=== PATIENT | male | born 1990 | race Caucasian/White ===

== ENCOUNTER 2018-07-08 14:11 | Inpatient (IN) | payer SELFPAY ==
[~2018-07-08] VITALS: Ht 182.9 cm; Wt 83.9 kg
[2018-07-08 14:11] VITALS: BP 124/72
--- NOTE | 2018-07-08 14:15 | NUR ---
Dolores cuevas in EDM - 07/08/18 at 1627 by LIDIA cms intact to all four extremities. < 3 sec cap refill. Pulse +2.
--- NOTE | 2018-07-08 14:16 | NUR ---
PT BIBA ALS TO BED 7
--- NOTE | 2018-07-08 14:16 | NUR ---
58m biba amr als with c/o tonic clonic seizure lasting approx 1 minute. Oral trauma noted. Urine incontinence noted. Patient given 7.5 Versed Intranasal. On arrival pt is post ictal. Combative. Aggressive. GCS=14. RR are even and tachypneic. No emesis noted. ER md germain by bedside. Pt to cardiac, bp, pulse ox, and pulse monitoring. Will continue to monitor.
[2018-07-08] MEDS ORDERED: NACL 0.9% 1,000 ML IV ONE (14:20)
[2018-07-08 14:54] LABS: BASOPHILS % (AUTO) 0.3 % (0.0-2.0); EOSINOPHILS # (AUTO) 0.1 K/uL (0-0.4); EOSINOPHILS % (AUTO) 1.6 % (0.0-4.0); HEMOGLOBIN 14.9 g/dL (12.0-18.0); LYMPHOCYTES # (AUTO) 2.5 K/uL (2.0-11.5); LYMPHOCYTES % (AUTO) 29.8 % (20.5-51.1); MEAN CORPUSCULAR HEMOGLOBIN 30 pg (27-31); MEAN CORPUSCULAR HGB CONC 33 g/dL (33-37); MEAN CORPUSCULAR VOLUME 90.7 fL (80-94); MONOCYTES # (AUTO) 0.8 K/uL (0.8-1.0); MONOCYTES % (AUTO) 9.1 % (1.7-9.3); NEUTROPHILS # (AUTO) 4.9 K/uL (1.8-7.7); NEUTROPHILS % (AUTO) 59.2 % (42.2-75.2); PLATELET COUNT (AUTO) 213 K/uL (140-450); RED BLOOD CELL COUNT(AUTO) 4.97 MIL/uL (4.20-6.10); RED CELL DISTRIBUTION WIDTH 13.9 % (11.6-13.7); WHITE BLOOD COUNT (AUTO) 8.3 K/uL (4.8-10.8)
[2018-07-08] MEDS ORDERED: LORazepam 2 MG/ML VIAL IVP ONE (14:55)
[2018-07-08] MEDS ORDERED: diphenhydrAMINE 50 MG/ML VIAL IVP ONE (14:55)
[2018-07-08 15:04] LABS: ANION GAP 13.5 (8-16); CARBON DIOXIDE 24.9 mmol/L (21-32); CHLORIDE 102 mmol/L (98-107); CREATININE 1.1 mg/dL (0.7-1.3); GFR ARICAN-AMERICAN 101 mL/min (>90); GLUCOSE 96 mg/dL (74-106); POTASSIUM 3.4 mmol/L (3.5-5.1); SODIUM SERUM 137 mmol/L (136-145); UREA NITROGEN, BLOOD 10 mg/dL (7-18)
--- NOTE | 2018-07-08 15:06 | NUR ---
pt placed on four point hard restraints. cms intact to all four extremitites. pulse +2 and cap refill < 3 secs to all four extremities. skin is warm/dry/color apprioriate for ethnicity.
[2018-07-08 15:11] LABS: ASPARTATE AMINOTRANSFERASE 46 U/L (15-37); TOTAL BILIRUBIN 0.6 mg/dL (0.0-1.0)
[2018-07-08 15:22] LABS: SALICYLATE < 2.8 mg/dL (2.8-20.0)
[2018-07-08 15:36] LABS: ACETAMINOPHEN < 0.5 ug/ml (10-30)
--- NOTE | 2018-07-08 16:15 | NUR ---
Dolores cuevas in EDM - 07/08/18 at 1626 by LIDIA cms intact to all four extremities. < 3 sec cap refill. Pulse +2.
--- NOTE | 2018-07-08 16:15 | NUR ---
cms intact to all four extremitites. pulse +2 and cap refill < 3 secs to all four extremities. skin is warm/dry/color apprioriate for ethnicity.
[2018-07-08 16:29] LABS: BARBITURATE, URINE NEG. ng/ml (NEG <=200); BENZODIAZEPINE, URINE POS. ng/mL (NEG <=200); CANNABINOID, URINE POS. ng/mL (NEG <=50); COCAINE, URINE NEG. ng/mL (NEG <=300); OPIATE, URINE NEG. ng/mL (NEG <=2000); PHENCYCLIDINE SCREEN,URINE NEG. ng/mL (NEG <=25)
--- NOTE | 2018-07-08 17:02 | NUR ---
pt resting with eyes closed. vss. nad. will continue to monitor.
--- NOTE | 2018-07-08 17:09 | NUR ---
iv saline lock found d/c on pt bed. iv catheter intact; bleeding controlled; dressing applied; bleeding controlled.
--- NOTE | 2018-07-08 17:15 | NUR ---
patient changed position. hard restraints removed from legs per er md germain order. cms intact to all four extremitites. pulse +2 and cap refill < 3 secs to all four extremities. skin is warm/dry/color apprioriate for ethnicity. patient resting with eyes closed. will continue to monitor.
--- NOTE | 2018-07-08 18:00 | NUR ---
d/c bl wrist restraints. pt remained calm and cooperative. pt arouses to name but falls back asleep. pulses +2, cap refill < 3 seconds to bl arms. full rom to all four extremities. skin color apprioriate for ethnicity to all four extremities.
[2018-07-08] MEDS ORDERED: MORPHINE SULFATE 2 MG/ML SYR IVP PRN (18:30)
[2018-07-08] MEDS ORDERED: ACETAMINOPHEN 325 MG TAB PO PRN (18:30)
[2018-07-08] MEDS ORDERED: HYDROcodone/APAP 5/325 MG 1 TAB TAB PO PRN (18:30)
[2018-07-08] MEDS ORDERED: DOCUSATE SODIUM 100 MG GELCAP PO PRN (18:30)
[2018-07-08] MEDS ORDERED: ONDANSETRON 4 MG/2 ML VIAL IM/IVP PRN (18:30)
--- NOTE | 2018-07-08 18:56 | NUR ---
PT TAKEN TO TELE FLOOR BY RN KRISH AND EMT MARGARITA
--- NOTE | 2018-07-08 18:56 | NUR ---
Patient will be admitted to care of Rod. Admited to Tele. Will go to room 110-A. Belongings list completed. Bedside report to Gale BANDA.
[2018-07-08 19:20] LABS: PROTHROMBIN TIME 10.2 secs (10.8-13.4)
[2018-07-08 19:24] LABS: CHOL/HDL RATIO 3.1 (1-4.5); MAGNESIUM 1.9 mg/dL (1.8-2.4); PHOSPHORUS 4.8 mg/dL (2.5-4.9); THYROID STIMULATING HORMONE 2.54 uIU/mL (0.34-3.74)
[2018-07-08 19:30] VITALS: BP 105/59
--- NOTE | 2018-07-08 19:30 | NUR ---
RECEIVED REPORT FROM [facility] ER NURSE. PATIENT IS SLEEPING, AROUSAL BY SHAKING, RESPIRATION EVEN UNLABORED ON ROOM AIR. VITALS STABLE. SKIN IS INTACT, WARM, AND DRY. IV IS PATENT AND INTACT. SWAB FOR MRSA NARES. ORIENTED TO THE ROOM, STAFF, AND CALL LIGHT. PLAN OF CARE WAS DISCUSS. ALL SAFETY PRECAUTION IN PLACE. BED IS IN LOW POSITION. CALL LIGHT WITHIN REACH.
[2018-07-08] MEDS ORDERED: LORazepam 2 MG/ML VIAL IVP PRN (19:55)
[2018-07-08] MEDS ORDERED: POTASSIUM CHLORIDE 20% 40 MEQ/15 ML UDC PO SCH (20:00)
--- NOTE | 2018-07-08 20:00 | NUR ---
MEDS WERE GIVEN PER ORDER. VITAL SIGNS STABLE. NO DISTRESS NOTED. CALL LIGHT WITHIN REACH.
[2018-07-08] MEDS: DEXT 5% / NACL 0.45% 1,000 ML IV SCH (20:21)
--- NOTE | 2018-07-08 21:18 | NUR ---
NOTIFIED DR PIERRE REGARDING PT US ABD, PT REFUSED AND WOULD NOT LIE ON HIS BACK FOR THE US TECH TO DO THE PROCEDURE, PT RESTING, NO DISTRESS NOTED, CALL LIGHT WITHIN REACH, WILL CONTINUE TO MONITOR. Addendum: 07/08/18 at 2122 by Ary Mustafa RN STATED OK TO DO IT TOMORROW MORNING.
--- NOTE | 2018-07-08 23:00 | NUR ---
DR. PIERRE NOTIFIED UNABLE TO GET CXR DUE TO PATIENT NONCOMPLIANCE. DR SAID OKAY TO WAIT IN MORNING OR WHEN THE PATIENT IS MORE ALERT.
[2018-07-08 23:06] LABS: CKMB RELATIVE INDEX 2.5 (0.0-2.5)
[2018-07-08 23:08] LABS: CREATINE KINASE MB 18.4 ng/mL (0-3.6)
[2018-07-09] VITALS: BP 110/63
--- NOTE | 2018-07-09 | NUR ---
PATIENT WAS SLEEPING COMFORTABLY RESPIRATION EVEN UNLABORED ON ROOM AIR. NO DISTRESS NOTED AT THIS TIME. CALL LIGHT WITHIN REACH. WILL CONTINUE TO MONITOR.
[2018-07-09 04:00] VITALS: BP 114/60
--- NOTE | 2018-07-09 06:00 | NUR ---
PATIENT IS AWAKE ABLE TO ANSWER QUESTIONS AOX4. PATIENT SPOKE TO DR. BACON AND PLAN OF CARE WAS DISCUSSED.
[2018-07-09 06:21] LABS: T4 (THYROXINE) 6.4 ug/dL (4.5-12.0)
[2018-07-09] MEDS: DEXT 5% / NACL 0.45% 1,000 ML IV SCH (06:38)
[2018-07-09 07:04] LABS: BASOPHILS % (AUTO) 0.5 % (0.0-2.0); EOSINOPHILS # (AUTO) 0.1 K/uL (0-0.4); EOSINOPHILS % (AUTO) 2.2 % (0.0-4.0); HEMATOCRIT 45.8 % (36-52); HEMOGLOBIN 15.1 g/dL (12.0-18.0); LYMPHOCYTES # (AUTO) 1.6 K/uL (2.0-11.5); LYMPHOCYTES % (AUTO) 29.2 % (20.5-51.1); MEAN CORPUSCULAR HEMOGLOBIN 30 pg (27-31); MEAN CORPUSCULAR HGB CONC 33 g/dL (33-37); MEAN CORPUSCULAR VOLUME 91.5 fL (80-94); MONOCYTES # (AUTO) 0.6 K/uL (0.8-1.0); MONOCYTES % (AUTO) 10.6 % (1.7-9.3); NEUTROPHILS # (AUTO) 3.2 K/uL (1.8-7.7); NEUTROPHILS % (AUTO) 57.5 % (42.2-75.2); PLATELET COUNT (AUTO) 200 K/uL (140-450); RED BLOOD CELL COUNT(AUTO) 5.01 MIL/uL (4.20-6.10); RED CELL DISTRIBUTION WIDTH 13.8 % (11.6-13.7); WHITE BLOOD COUNT (AUTO) 5.6 K/uL (4.8-10.8)
--- NOTE | 2018-07-09 07:17 | NUR ---
ENDORSED PATIENT TO MARCE RODRIGUEZ NURSE FOR CONTINUITY OF CARE. PATIENT IS STABLE AT THIS TIME.
--- NOTE | 2018-07-09 07:20 | NUR ---
RECEIVED PT REPORT FROM IRONING MACHINE OPERATOR NURSE. PT IS ASLEEP AT THIS TIME, NO S/S OF ACUTE DISTRESS OR SOB. NO C/O PAIN. PT ON ROOM AIR, SKIN IS INTACT. IV SITE NOTED ON THE LFA, 22 G, INFUSING D5 1/2NS 100 ML/HR. FALL AND SEIZURE PRECAUTIONS IN PLACE. CALL LIGHT WITHIN REACH. WILL CONTINUE TO MONITOR PT.
[2018-07-09 08:00] VITALS: BP 124/73
[2018-07-09 08:00] LABS: ANION GAP 7.3 (8-16); CARBON DIOXIDE 27.5 mmol/L (21-32); CREATININE 0.9 mg/dL (0.7-1.3); POTASSIUM 3.8 mmol/L (3.5-5.1)
[2018-07-09 08:36] LABS: PHOSPHORUS 4.1 mg/dL (2.5-4.9)
[2018-07-09] MEDS ORDERED: levETIRAcetam 500 MG TAB PO SCH (09:00)
[2018-07-09] MEDS ORDERED: LACTULOSE 20 GM/30 ML UDC PO SCH (09:00)
--- NOTE | 2018-07-09 10:00 | NUR ---
PT WANTS TO LEAVE AMA. PT WAS INFORMED ON RISKS OF LEAVING BEFORE COMPLETING TREATMENT. MD WAS NOTIFIED. MD DISCUSSED WITH PT RISKS OF LEAVING AGAINST MEDICAL ADVICE. PT STILL INSISTS ON LEAVING. AMA FORM SIGNED.
--- NOTE | 2018-07-09 10:35 | NUR ---
PT HAS LEFT AMA. PRESCRIPTION FOR KEPPRA WAS GIVEN. IV SITE AND WRIST BANDS WERE REMOVED. Addendum: 07/09/18 at 1100 by Jenniffer Schmitz RN BOWEN #[id number]
== END 2018-07-09 10:35 | disposition left against medical advice (07) | DRG 100 ==
LOC: MED 14:11 → EDBD 14:11 → MTU 18:27
PROVIDERS: ADMIT General Practice; ATTEND General Practice
DX: G40.409 Other generalized epilepsy and epileptic syndromes, not intractable, without status epilepticus (principal); G92 Toxic encephalopathy; K86.1 Other chronic pancreatitis; R65.10 Systemic inflammatory response syndrome (SIRS) of non-infectious origin without acute organ dysfunction; K72.90 Hepatic failure, unspecified without coma; F15.129 Other stimulant abuse with intoxication, unspecified; E78.5 Hyperlipidemia, unspecified; E87.6 Hypokalemia; F19.10 Other psychoactive substance abuse, uncomplicated; R74.0 Nonspecific elevation of levels of transaminase and lactic acid dehydrogenase [LDH]
CPT/HCPCS: 36415; 70450; 71045; 76705; 80048; 80053; 80305; 82140; 82150; 82550; 82553; 83036; 83605; 83690; 83735; 83880; 84100; 84436; 84443; 85025; 85610; 85730; 87081; 93005; 96361; 96374; 96375; 99285; C1758; G0480; G0482; J1200; J2060; Q0092